=== PATIENT | male | born 1960 | race Caucasian/White ===

== ENCOUNTER 2016-08-28 17:12 | Emergency (ER) | payer OTHER ==
--- NOTE | 2016-08-28 18:36 | XRAY Preliminary Report ---
Exam: XR Ankle 3 View LT IMPRESSION: Normal ankle radiography. [facility] SITE ID: [id number]
--- NOTE | 2016-08-28 18:38 | XRAY Report ---
EXAM: LEFT ANKLE RADIOGRAPHY EXAM DATE: 08/28/2016 06:20 PM. CLINICAL HISTORY: Pain after hiking today. COMPARISON: None. TECHNIQUE: 3 views. FINDINGS: Bones: Normal. No fractures or bone lesions. Joints: No subluxations. The ankle mortise is normally aligned. Soft Tissues: Normal. No soft tissue swelling. IMPRESSION: Normal ankle radiography. [facility] Referring Provider Line: [phone] SITE ID: [id number]
--- NOTE | 2016-08-28 19:32 | ED Physician Documentation ---
History of Present Illness - Stated complaint Stated Complaint: L ANKLE PAIN - Chief complaint Chief Complaint: Ext Problem - Additonal information Additional information: hx from pt 56 male recent plantar fascia steroid injection on vacation was hiking and birding at [place] stretched his calf several times and on the third time had a sharp pain an then swelling inf and posterior to medial mall Review of Systems Musculoskeletal: reports: Pain with weight bearing PD PAST MEDICAL HISTORY - Past Medical History Past Medical History: Yes Musculoskeletal: Other Other Past Medical History: plantar fasciitis - Past Surgical History Past Surgical History: Yes HEENT: Rhinoplasty Derm: Other - Present Medications Home Medications: Ambulatory Orders Medication Instructions Recorded Confirmed Finasteride [Propecia] 1 mg PO DAILY 08/28/16 08/28/16 Metoprolol Succinate 50 mg PO DAILY 08/28/16 08/28/16 - Allergies Allergies/Adverse Reactions: Allergies Allergy/AdvReac Type Severity Reaction Status Date / Time Penicillins Allergy Unknown Verified 08/28/16 17:42 - Social History Does the pt smoke?: No Smoking Status: Never smoker Does the pt drink ETOH?: Yes Does the pt have substance abuse?: No - Immunizations Immunizations are current?: Yes - POLST Patient has POLST: No PD ED PE NORMAL - Vitals Vital signs reviewed: Yes - Extremities Extremities: Other (L ankle? TTP and STS inf and post to medial mall, pain worse with move toes and the extensor tendon is TTP at the ankle, but able to move and no palpable defect, no bony TTP, no calf achilles TTP pr defect and nl herring, MSV intact) Results - Vitals Vitals: Vital Signs - 24 hr 08/28/16 17:39 Temperature 36.8 C Heart Rate 85 Respiratory 14 Rate Blood Pressure 133/75 H O2 Saturation 100 Oxygen O2 Source Room air - Rads (name of study) L ankle Radiology: Other (neg) Departure - Departure Disposition: 01 Home, Self Care Clinical Impression: Medial ankle sprain Qualifiers: Encounter type: initial encounter Laterality: left Qualified Code(s): S93.422A - Sprain of deltoid ligament of left ankle, initial encounter Condition: Good Instructions: ED Sprain Ankle W X Ray Comments: The bones on the xray were fine. I suspect you have a soft tissue injury - either of the ligament stabilizing the medial ankle or the extensor tendons that run through that region Recommend an GORDY wrap mice and elevation tonight to help the swelling Then you can bear weight as tolerated while wearing the splint we gave you. When possible use the crutches to take some of the weight bearing stress off your ankle. Motrin for pain and inflammation. If not better by the end of your vacation, follow up with your PMD for a recheck when you get home also please see your PMD to get your blood pressure rechecked - it was a little bit high today
[2016-08-28 20:09] VITALS: BP 147/92
== END 2016-08-28 20:07 | disposition home or self-care (01) ==
LOC: ED 17:12
DX: S93.402A Sprain of unspecified ligament of left ankle, initial encounter (principal); X50.1XXA Overexertion from prolonged static or awkward postures, initial encounter; Y93.01 Activity, walking, marching and hiking; Y92.828 Other wilderness area as the place of occurrence of the external cause
CPT/HCPCS: 99282; 99283